=== PATIENT | female | born 1975 | race Caucasian/White ===

== ENCOUNTER 2017-05-28 14:26 | Inpatient (IN) | payer OTHER ==
[2017-05-28] MEDS ORDERED: SODIUM CHLORIDE 0.9% 1,000 ML IV STA ×2 (14:41→15:00)
--- NOTE | 2017-05-28 15:00 | ED ---
General Adult HPI - General Source: patient, RN notes reviewed Mode of arrival: ambulatory Limitations: no limitations <Virgen Evangelista - Last Filed: 05/28/17 16:17> <Naren Short - Last Filed: 05/28/17 16:26> - General Chief complaint: Recheck/Abnormal Lab/Rx Stated complaint: flu/dehydration Time Seen by Provider: 05/28/17 14:37 - History of Present Illness Initial comments: 41-year-old female presents to the emergency Department chief complaint of fever and dehydration. Patient has been sick for about 5 days now. She has had a fever and has been using Motrin Tylenol. Today they went to urgent care she states that today she started have some difficulty in urination but she's not been eating and drinking as much. She states that she is also started to develop some dizziness may now some low blood pressure. He states that she was then sent here. They were thinking she might have a bladder infection as well as influenza. They deny any nausea vomiting or diarrhea. She denies any specific pain. Denies any ear pain or throat pain. They were concerned due to the continued fever as well as the lower blood pressure and her dizziness so she thought that she should be seen. She states that laying flat she has no dizziness. She states that when she is up moving around as when the dizziness occurs. Patient denies any recent shortness of breath, chest pain, back pain, abdominal pain, nausea vomiting, numbness or tingling, dysuria or hematuria, constipation or diarrhea, headaches or visual changes, or any other current symptoms. (Virgen Evangelista) - Related Data Home Medications Medication Instructions Recorded Confirmed Acetaminophen Tab [Tylenol Tab] 1,000 mg PO Q6HR PRN 05/28/17 05/28/17 Ciprofloxacin HCl [Cipro] 500 mg PO Q12HR 05/28/17 05/28/17 Oseltamivir [Tamiflu] 75 mg PO Q12HR 05/28/17 05/28/17 Allergies Allergy/AdvReac Type Severity Reaction Status Date / Time No Known Allergies Allergy Verified 05/28/17 14:46 Review of Systems ROS Other: All systems not noted in ROS Statement are negative. <Virgen Evangelista - Last Filed: 05/28/17 16:17> ROS Other: All systems not noted in ROS Statement are negative. <Naren Short - Last Filed: 05/28/17 16:26> ROS Statement: Those systems with pertinent positive or pertinent negative responses have been documented in the HPI. Past Medical History Past Medical History: Hypertension Additional Past Medical History / Comment(s): kidney stones History of Any Multi-Drug Resistant Organisms: None Reported Past Surgical History: Section Past Psychological History: No Psychological Hx Reported Smoking Status: Never smoker Past Alcohol Use History: None Reported Past Drug Use History: None Reported <Virgen Evangelista - Last Filed: 05/28/17 16:17> General Exam Limitations: no limitations <Virgen Evangelista - Last Filed: 05/28/17 16:17> <Naren Short - Last Filed: 05/28/17 16:26> - General Exam Comments Initial Comments: General: The patient is awake and alert, in no distress, and does not appear acutely ill. Eye: Pupils are equal, round and reactive to light, extra-ocular movements are intact; there is normal conjunctiva bilaterally. No signs of icterus. Ears, nose, mouth and throat: There are moist mucous membranes. Neck: The neck is supple, there is no tenderness. Cardiovascular: There is a regular rate and rhythm. No murmur, rub or gallop is appreciated. Respiratory: Lungs are clear to auscultation, respirations are non-labored, breath sounds are equal. No wheezes, stridor, rales, or rhonchi. Gastrointestinal: Soft, non-distended, non-tender abdomen without masses or organomegaly noted. There is no rebound or guarding present. No CVA tenderness. Bowel sounds are unremarkable. Back: There is no tenderness to palpation in the midline. There is no obvious deformity. No rashes noted. Musculoskeletal: Normal ROM, no tenderness, There is no pedal edema. There is no calf tenderness or swelling. Sensation intact. Pulses equal bilaterally 2+. Neurological: CN II-XII intact, There are no obvious motor or sensory deficits. Coordination appears grossly intact. Speech is normal. Skin: Skin is warm and dry and no rashes or lesions are noted. Psychiatric: Cooperative, appropriate mood & affect, normal judgment. (Virgen Evangelista) Vital Signs 05/28/17 05/28/17 14:29 15:59 Temperature 99.0 F Pulse Rate 100 104 H Respiratory 20 16 Rate Blood Pressure 111/57 121/63 O2 Sat by Pulse 99 99 Oximetry EKG Findings - EKG Comments: EKG Findings:: Normal sinus rhythm, possible left atrial enlargement, incomplete right bundle branch block, ventricular rate 93,NE interval 142 <Virgen Evangelista - Last Filed: 05/28/17 16:17> Medical Decision Making - Lab Data Result diagrams: 05/28/17 14:52 05/28/17 14:52 - Radiology Data Radiology results: report reviewed, image reviewed <Virgen Evangelista - Last Filed: 05/28/17 16:17> - Lab Data Result diagrams: 05/28/17 14:52 05/28/17 14:52 <Naren Short - Last Filed: 05/28/17 16:26> - Medical Decision Making 41-year-old female presents with chief complaint of fever. At this time urinalysis is showing suspicion for UTI. Patient's laboratories show an elevated white blood cell count. Patient also was found to be anemic at 7.1. This time patient is having symptomatic anemia due to the lightheadedness at home. Stool occult is positive. Protonix has been ordered as well as Rocephin. We'll admit the patient for continued care. This is discussed with the patient and family are in agreement this plan all questions have been answered. Patient will be admitted at this time. (Virgen Evangelista) Patient reevaluated by myself, Dr. Short. Patient resting comfortably in bed. Patient updated on results and plan. Abdomen is soft and nontender. Patient denies any bloody stools. Patient states she may have had extremely rare black stools however none recently. Case was discussed in detail with Dr. wright, who will admit for Dr. Fleming. (Naren Short) - Lab Data Lab Results 05/28/17 05/28/17 05/28/17 Range/Units 14:52 14:52 14:52 WBC 13.6 H (3.8-10.6) k/uL RBC 3.86 (3.80-5.40) m/uL Hgb 7.1 L (11.4-16.0) gm/dL Hct 25.5 L (34.0-46.0) % MCV 66.2 L (80.0-100.0) fL MCH 18.5 L (25.0-35.0) pg MCHC 27.9 L (31.0-37.0) g/dL RDW 17.2 H (11.5-15.5) % Plt Count 358 (150-450) k/uL Neutrophils % 82 % Lymphocytes % 12 % Monocytes % 4 % Eosinophils % 0 % Basophils % 0 % Neutrophils # 11.1 H (1.3-7.7) k/uL Lymphocytes # 1.6 (1.0-4.8) k/uL Monocytes # 0.6 (0-1.0) k/uL Eosinophils # 0.0 (0-0.7) k/uL Basophils # 0.0 (0-0.2) k/uL Hypochromasia Marked Anisocytosis Slight Microcytosis Marked Sodium 132 L (137-145) mmol/L Potassium 2.8 L* (3.5-5.1) mmol/L Chloride 96 L (98-107) mmol/L Carbon Dioxide 22 (22-30) mmol/L Anion Gap 14 mmol/L BUN 16 (7-17) mg/dL Creatinine 1.10 H (0.52-1.04) mg/dL Est GFR (MDRD) Af Amer >60 (>60 ml/min/1.73 sqM) Est GFR (MDRD) Non-Af 55 (>60 ml/min/1.73 sqM) Glucose 174 H (74-99) mg/dL Plasma Lactic Acid Kev 1.6 (0.7-2.0) mmol/L Calcium 8.4 (8.4-10.2) mg/dL Total Bilirubin 0.4 (0.2-1.3) mg/dL AST 25 (14-36) U/L ALT 23 (9-52) U/L Alkaline Phosphatase 169 H (38-126) U/L Total Protein 6.8 (6.3-8.2) g/dL Albumin 3.4 L (3.5-5.0) g/dL Urine Color Urine Appearance (Clear) Urine pH (5.0-8.0) Ur Specific [place] (1.001-1.035) Urine Protein (Negative) Urine Glucose (UA) (Negative) Urine Ketones (Negative) Urine Blood (Negative) Urine Nitrite (Negative) Urine Bilirubin (Negative) Urine Urobilinogen (<2.0) mg/dL Ur Leukocyte Esterase (Negative) Urine RBC (0-5) /hpf Urine WBC (0-5) /hpf Ur Squamous Epith Cells (0-4) /hpf Urine Bacteria (None) /hpf Urine Mucus (None) /hpf Urine Yeast (Budding) (None) /hpf Stool Occult Blood (Negative) Influenza Type A RNA (Not Detectd) Influenza Type B (PCR) (Not Detectd) 05/28/17 05/28/17 05/28/17 Range/Units 14:52 15:50 15:57 WBC (3.8-10.6) k/uL RBC (3.80-5.40) m/uL Hgb (11.4-16.0) gm/dL Hct (34.0-46.0) % MCV (80.0-100.0) fL MCH (25.0-35.0) pg MCHC (31.0-37.0) g/dL RDW (11.5-15.5) % Plt Count (150-450) k/uL Neutrophils % % Lymphocytes % % Monocytes % % Eosinophils % % Basophils % % Neutrophils # (1.3-7.7) k/uL Lymphocytes # (1.0-4.8) k/uL Monocytes # (0-1.0) k/uL Eosinophils # (0-0.7) k/uL Basophils # (0-0.2) k/uL Hypochromasia Anisocytosis Microcytosis Sodium (137-145) mmol/L Potassium (3.5-5.1) mmol/L Chloride (98-107) mmol/L Carbon Dioxide (22-30) mmol/L Anion Gap mmol/L BUN (7-17) mg/dL Creatinine (0.52-1.04) mg/dL Est GFR (MDRD) Af Amer (>60 ml/min/1.73 sqM) Est GFR (MDRD) Non-Af (>60 ml/min/1.73 sqM) Glucose (74-99) mg/dL Plasma Lactic Acid Kev (0.7-2.0) mmol/L Calcium (8.4-10.2) mg/dL Total Bilirubin (0.2-1.3) mg/dL AST (14-36) U/L ALT (9-52) U/L Alkaline Phosphatase (38-126) U/L Total Protein (6.3-8.2) g/dL Albumin (3.5-5.0) g/dL Urine Color Yellow Urine Appearance Cloudy H (Clear) Urine pH 5.5 (5.0-8.0) Ur Specific [place] 1.005 (1.001-1.035) Urine Protein 1+ H (Negative) Urine Glucose (UA) Negative (Negative) Urine Ketones Negative (Negative) Urine Blood Moderate H (Negative) Urine Nitrite Negative (Negative) Urine Bilirubin Negative (Negative) Urine Urobilinogen <2.0 (<2.0) mg/dL Ur Leukocyte Esterase Small H (Negative) Urine RBC 34 H (0-5) /hpf Urine WBC 16 H (0-5) /hpf Ur Squamous Epith Cells 2 (0-4) /hpf Urine Bacteria Moderate H (None) /hpf Urine Mucus Rare H (None) /hpf Urine Yeast (Budding) Occasional H (None) /hpf Stool Occult Blood Positive H (Negative) Influenza Type A RNA Not Detected (Not Detectd) Influenza Type B (PCR) Not Detected (Not Detectd) Disposition Decision Date: 05/28/17 Decision Time: 16:18 <Virgen Evangelista - Last Filed: 05/28/17 16:17> <Naren Short - Last Filed: 05/28/17 16:26> Clinical Impression: UTI (urinary tract infection), Symptomatic anemia, GI bleed Disposition: ADMITTED IP TO THIS [facility] Condition: Stable Referrals: Elliot Fleming MD [Primary Care Provider] - 1-2 days Addendum entered and electronically signed by Virgen Evangelista PA-C 05/28/17 16:23: At this time the patient does meet for sepsis criteria.
[2017-05-28 15:09] LABS: Anisocytosis Slight; Basophils % (A) 0 %; Eosinophils % (A) 0 %; HCT 25.5 % (34.0-46.0); HGB 7.1 gm/dL (11.4-16.0); Hypochromasia Marked; Lymphocytes # (A) 1.6 k/uL (1.0-4.8); Lymphocytes % (A) 12 %; MCH 18.5 pg (25.0-35.0); MCHC 27.9 g/dL (31.0-37.0); MCV 66.2 fL (80.0-100.0); Mean Platelet Volume 7.1; Microcytosis Marked; Monocytes # (A) 0.6 k/uL (0-1.0); Monocytes % (A) 4 %; Neutrophils # (A) 11.1 k/uL (1.3-7.7); Neutrophils % (A) 82 %; Platelet Count 358 k/uL (150-450); RBC 3.86 m/uL (3.80-5.40); RDW 17.2 % (11.5-15.5); WBC 13.6 k/uL (3.8-10.6)
[2017-05-28 15:13] LABS: ALT 23 U/L (9-52); AST 25 U/L (14-36); Albumin 3.4 g/dL (3.5-5.0); Alkaline Phosphatase 169 U/L (38-126); Anion Gap 14 mmol/L; Blood Urea Nitrogen 16 mg/dL (7-17); Calcium 8.4 mg/dL (8.4-10.2); Carbon Dioxide 22 mmol/L (22-30); Chloride 96 mmol/L (98-107); Glucose 174 mg/dL (74-99); Sodium 132 mmol/L (137-145); Total Bilirubin 0.4 mg/dL (0.2-1.3); Total Protein 6.8 g/dL (6.3-8.2)
[2017-05-28 15:24] LABS: Potassium 2.8 mmol/L (3.5-5.1)
[2017-05-28] MEDS ORDERED: POTASSIUM CHLORIDE ER 20 MEQ TAB.ER PO STA (15:32)
--- NOTE | 2017-05-28 15:37 | XR ---
EXAMINATION TYPE: XR chest 2V DATE OF EXAM: 05/28/2017 COMPARISON: NONE HISTORY: Cough per order. Newly diagnosed flu with fever perforation. TECHNIQUE: Frontal and lateral views of the chest are obtained. FINDINGS: There is no focal air space opacity, pleural effusion, or pneumothorax seen. The cardiac silhouette size is within normal limits. The osseous structures are intact. IMPRESSION: No suspicious acute pulmonary process.
[2017-05-28 16:03] LABS: Appearance,Urine Cloudy (Clear); Bacteria,Urine Moderate /hpf; Bilirubin,Urine Negative (Negative); Blood,Urine Moderate (Negative); Budding Yeast,Urine Occasional /hpf; Color,Urine Yellow; Glucose,Urine (UA) Negative (Negative); Ketones,Urine Negative (Negative); Leukocyte Esterase,Urine Small (Negative); Mucus,Urine Rare /hpf; PH, Urine 5.5 (5.0-8.0); Protein,Urine 1+ (Negative); RBC,Urine 34 /hpf (0-5); Specific Gravity,Urine 1.005 (1.001-1.035); Squamous Epithelial Cell,Urine 2 /hpf (0-4); Urobilinogen,Urine <2.0 mg/dL (<2.0); WBC,Urine 16 /hpf (0-5)
[2017-05-28] MEDS ORDERED: PANTOPRAZOLE 40 MG/10 ML VIAL IVP STA (16:12)
[2017-05-28] MEDS ORDERED: cefTRIAXone IN SWFI 1,000 MG/10 ML SYRINGE IVP STA (16:13)
[2017-05-28] MEDS ORDERED: NALOXONE 0.4 MG/ML 1 ML VIAL IV PRN ×2 (16:18→18:31)
[2017-05-28] MEDS ORDERED: SODIUM CHLORIDE 0.9% 1,000 ML IV SCH (16:30)
[2017-05-28] MEDS: ACETAMINOPHEN TAB 325 MG TAB PO PRN ×2 (17:35→22:45)
[2017-05-28 18:11] VITALS: BMI 28.7
[2017-05-28] MEDS ORDERED: CALCIUM CARBONATE 500 MG CHEWABLE PO PRN (18:31)
[2017-05-28] MEDS ORDERED: Acetaminophen-Codeine 300-30mg TAB PO PRN (18:31)
[2017-05-28] MEDS ORDERED: LORazepam 0.5 MG TAB PO PRN (18:31)
[2017-05-28] MEDS ORDERED: LACTULOSE 20 GM/30 ML CUP PO PRN (18:31)
[2017-05-28] MEDS ORDERED: BISACODYL 10 MG SUPP RECTAL PRN (18:31)
[2017-05-28] MEDS ORDERED: cefTRIAXone 1,000 MG VIAL (IM USE) IM SCH (21:00)
[2017-05-28] MEDS ORDERED: cefTRIAXone IN SWFI 1,000 MG/10 ML SYRINGE IVP SCH (21:00)
[2017-05-28] MEDS ORDERED: MELATONIN 3 MG TABLET PO PRN (21:00)
[2017-05-28] MEDS: PANTOPRAZOLE 40 MG/10 ML VIAL IVP SCH (21:10)
[2017-05-28] MEDS: OSELTAMIVIR 75 MG CAP PO SCH (21:11)
[2017-05-28] MEDS: POTASSIUM CHLORIDE ER 20 MEQ TAB.ER PO SCH ×2 (21:12→23:45)
--- NOTE | 2017-05-28 21:45 | P.HPIM ---
History of Present Illness H&P Date: 05/28/17 Chief Complaint: fever History of present complaint: This is a very pleasant 41-year-old patient of Dr. Fleming. Chronic stable medical conditions include hypertension, kidney stones, heavy menstrual period. Patient does get kidney stone pain off and on, and sometimes get cloudy urine that clears up up on its own. For about 5 days patient been having fever chills. Increased urinary frequency. Increasing low back pain, and in the kidney area. Decreased appetite. Some nausea. No vomiting. Tired rundown. Finally decided to come in. Patient's hemoglobin was found to be down in the ER. Patient does occasionally notice dark stool. There is no weight loss. Patient does complain of heavy menstrual period for quite some time. Did not seek medical attention for the same though she did mention this to her family doctor's mid- level provider GEN.: Fever chills decreased appetite EYES: None HEENT: None NECK: None RESPIRATORY: None CARDIOVASCULAR: None GASTROINTESTINAL: As above GENITOURINARY: Heavy menstrual.] MUSCULOSKELETAL: None LYMPHATICS: None HEMATOLOGICAL: None PSYCHIATRY: None NEUROLOGICAL: None Past medical history: Hypertension, kidney stones, gestational diabetes Past surgical history: None Social history: Patient does not smoke or drink alcohol. Lives with her . 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. Family history: Diabetes mellitus VITAL SIGNS: 101.6, 117, 18, 139/71, 100% room air GENERAL: Average built, laying in bed, tired appearing. EYES: Pupils equal. Conjunctiva palel. HEENT: External appearance of nose and ears normal, oral cavity grossly normal. NECK: JVD not raised; masses not palpable. HEART: First and second heart sounds are normal; no edema. LUNGS: Respiratory rate normal; clear to auscultation. ABDOMEN: Soft, mild tenderness in the right renal angle, liver spleen not palpable, no masses palpable. LYMPHATICS: No lymph nodes palpable in the axilla and neck. PSYCH: Alert and oriented x3; mood and affect normal. NEUROLOGICAL: Cranial nerves grossly intact; no facial asymmetry, power and sensation grossly intact. Investigations: White count 13.6, hemoglobin 7.1, MCV low, platelets 358, potassium 2.8, sodium 132, creatinine 1.10 UA positive for blood leukoesterase WBC Stool occult blood positive Assessment: -Possible right pyelonephritis in a patient with known kidney stones, now presenting with sepsis, POA -Significant microcytic anemia, and the patient is got chronic menorrhagia, that could explain the same but at the same time, patient does report of dark stools and patient got fecal, blood positive. -Possible chronic GI bleed, needs to be further worked up -Essential hypertension -Chronic menorrhagia -Chronic nephrolithiasis Plan: Patient be given IV fluids, IV ceftriaxone. Consultation to GI is being done with a view to possible endoscopy. Electrolytes labs will be followed closely. Care was discussed in detail with the patient. Patient will need to see CLAIM PROCESSOR as an outpatient. This was discussed with the patient. Questions were answered Past Medical History Past Medical History: Hypertension Additional Past Medical History / Comment(s): kidney stones, Gestational diabetes. History of Any Multi-Drug Resistant Organisms: None Reported Past Surgical History: Section Past Psychological History: No Psychological Hx Reported Smoking Status: Never smoker Past Alcohol Use History: None Reported Past Drug Use History: None Reported - Past Family History Mother Family Medical History: Diabetes Mellitus Medications and Allergies Home Medications Medication Instructions Recorded Confirmed Type Acetaminophen Tab [Tylenol Tab] 1,000 mg PO Q6HR PRN 05/28/17 05/28/17 History Ciprofloxacin HCl [Cipro] 500 mg PO Q12HR 05/28/17 05/28/17 History Oseltamivir [Tamiflu] 75 mg PO Q12HR 05/28/17 05/28/17 History Allergies Allergy/AdvReac Type Severity Reaction Status Date / Time No Known Allergies Allergy Verified 05/28/17 14:46 Results CBC & Chem 7: 05/28/17 14:52 05/28/17 19:23 Labs: Abnormal Lab Results - Last 24 Hours (Table)
[2017-05-28] MEDS: IBUPROFEN 400 MG TAB PO PRN (21:50)
[2017-05-28] MEDS: LACTATED RINGERS 1,000 ML IV SCH (21:50)
[2017-05-29] MEDS: LACTATED RINGERS 1,000 ML IV SCH ×3 (05:08→21:19)
[2017-05-29 07:32] LABS: Anisocytosis Slight; Basophils % (A) 0 %; Eosinophils % (A) 0 %; HCT 24.8 % (34.0-46.0); Hypochromasia Marked; Lymphocytes # (A) 1.3 k/uL (1.0-4.8); Lymphocytes % (A) 11 %; MCH 18.8 pg (25.0-35.0); MCHC 27.1 g/dL (31.0-37.0); MCV 69.4 fL (80.0-100.0); Mean Platelet Volume 7.3; Microcytosis Marked; Monocytes # (A) 0.5 k/uL (0-1.0); Monocytes % (A) 4 %; Neutrophils # (A) 9.3 k/uL (1.3-7.7); Neutrophils % (A) 82 %; Platelet Count 325 k/uL (150-450); RBC 3.57 m/uL (3.80-5.40); RDW 17.6 % (11.5-15.5); WBC 11.4 k/uL (3.8-10.6)
[2017-05-29 07:43] LABS: ALT 29 U/L (9-52); AST 20 U/L (14-36); Albumin 2.8 g/dL (3.5-5.0); Alkaline Phosphatase 155 U/L (38-126); Anion Gap 10 mmol/L; Blood Urea Nitrogen 10 mg/dL (7-17); Calcium 8.3 mg/dL (8.4-10.2); Carbon Dioxide 21 mmol/L (22-30); Chloride 110 mmol/L (98-107); Glucose 97 mg/dL (74-99); Potassium 4.1 mmol/L (3.5-5.1); Sodium 141 mmol/L (137-145); Total Bilirubin 0.2 mg/dL (0.2-1.3); Total Protein 5.8 g/dL (6.3-8.2)
[2017-05-29] MEDS: ACETAMINOPHEN TAB 325 MG TAB PO PRN ×3 (07:50→21:19)
[2017-05-29] MEDS: PANTOPRAZOLE 40 MG/10 ML VIAL IVP SCH ×2 (07:51→21:19)
[2017-05-29] MEDS: OSELTAMIVIR 75 MG CAP PO SCH (07:51)
[2017-05-29 08:10] LABS: HGB 6.7 gm/dL (11.4-16.0)
[2017-05-29] MEDS: IBUPROFEN 400 MG TAB PO PRN (10:31)
--- NOTE | 2017-05-29 19:19 | P.PN ---
Progress Note - Text Progress Note Date: 05/29/17 Presenting complaint fever Interval history: This is a very pleasant 41-year-old patient of Dr. Fleming. Chronic stable medical conditions include hypertension, kidney stones, heavy menstrual period. Patient does get kidney stone pain off and on, and sometimes get cloudy urine that clears up up on its own. For about 5 days patient been having fever chills. Increased urinary frequency. Increasing low back pain, and in the kidney area. Decreased appetite. Some nausea. No vomiting. Tired rundown. Finally decided to come in. Patient's hemoglobin was found to be down in the ER. Patient does occasionally notice dark stool. There is no weight loss. Patient does complain of heavy menstrual period for quite some time. Did not seek medical attention for the same though she did mention this to her family doctor's mid- level provider Today-patient was ordered unit of blood by me earlier today. Hemoglobin dropped to below 7. Patient's patient also on her menstruation. Awaiting input from GI. Overall feeling better. Abdominal pain is greatly improved. Review of systems: Was done for constitutional, cardiovascular, GI, pulmonary. relevant finding as above Current medications are reviewed and include: IV ceftriaxone IV lactated Ringer's VITAL SIGNS: 100.6, 108, 14, 135-84, 93% GENERAL: , laying in bed, tired appearing. EYES: Pupils equal. Conjunctiva palel. HEENT: External appearance of nose and ears normal, oral cavity grossly normal. NECK: JVD not raised; masses not palpable. HEART: First and second heart sounds are normal; no edema. LUNGS: Respiratory rate normal; clear to auscultation. ABDOMEN: Soft, mild tenderness in the right renal angle, liver spleen not palpable, no masses palpable. PSYCH: Alert and oriented x3; mood and affect normal. Investigations: White count 11.4, hemoglobin 6.7, potassium 4.1, creatinine 0.67 UA positive for blood leukoesterase WBC Stool occult blood positive Assessment: -Possible right pyelonephritis in a patient with known kidney stones, now presenting with sepsis, POA -Significant microcytic anemia, and the patient is got acute on chronic menorrhagia, that could explain the same but at the same time, patient does report of dark stools and patient got fecal, blood positive. -Possible chronic GI bleed, needs to be further worked up -Essential hypertension -Chronic menorrhagia -Chronic nephrolithiasis Plan: Patient been ordered unit of blood. Continue with IV antibiotics. Await cultures. Care was discussed with the patient.
[2017-05-29] MEDS: cefTRIAXone IN SWFI 1,000 MG/10 ML SYRINGE IVP SCH (21:19)
[2017-05-30] MEDS: IBUPROFEN 400 MG TAB PO PRN ×2 (00:01→13:12)
[2017-05-30 07:57] LABS: Anisocytosis Slight; Basophils % (A) 0 %; Eosinophils % (A) 0 %; HCT 26.9 % (34.0-46.0); HGB 7.6 gm/dL (11.4-16.0); Hypochromasia Marked; Lymphocytes # (A) 1.3 k/uL (1.0-4.8); Lymphocytes % (A) 11 %; MCH 20.1 pg (25.0-35.0); MCHC 28.1 g/dL (31.0-37.0); MCV 71.7 fL (80.0-100.0); Mean Platelet Volume 7.2; Microcytosis Marked; Monocytes # (A) 0.5 k/uL (0-1.0); Monocytes % (A) 4 %; Neutrophils # (A) 10.3 k/uL (1.3-7.7); Neutrophils % (A) 83 %; Platelet Count 305 k/uL (150-450); Poikilocytosis Slight; RBC 3.75 m/uL (3.80-5.40); RDW 18.5 % (11.5-15.5); WBC 12.4 k/uL (3.8-10.6)
[2017-05-30 08:12] LABS: Anion Gap 11 mmol/L; Blood Urea Nitrogen 7 mg/dL (7-17); Calcium 8.3 mg/dL (8.4-10.2); Carbon Dioxide 23 mmol/L (22-30); Chloride 106 mmol/L (98-107); Glucose 84 mg/dL (74-99); Potassium 3.6 mmol/L (3.5-5.1); Sodium 140 mmol/L (137-145)
[2017-05-30] MEDS: ACETAMINOPHEN TAB 325 MG TAB PO PRN ×3 (08:28→21:23)
[2017-05-30] MEDS: PANTOPRAZOLE 40 MG/10 ML VIAL IVP SCH ×2 (09:02→20:37)
--- NOTE | 2017-05-30 15:05 | P.CONS ---
History of Present Illness - Reason for Consult Consult date: 05/29/17 Anemia - History of Present Illness This is a very pleasant 41-year-old patient of Dr. Fleming. Chronic stable medical conditions include hypertension, kidney stones, heavy menstrual period. Patient does get kidney stone pain off and on, and sometimes get cloudy urine that clears up up on its own. For about 5 days patient been having fever chills. Increased urinary frequency. Increasing low back pain, and in the kidney area. Decreased appetite. Some nausea. No vomiting. Tired rundown. Finally decided to come in. Patient's hemoglobin was found to be down in the ER. Patient does occasionally notice dark stool. There is no weight loss. Patient does complain of heavy menstrual period for quite some time. Apparently she had a colonoscopy within the last 3-5 years that was normal. She has no overt bleeding or any upper GI complaints. Review of Systems Constitutional: Denies fever, chills, sweats, weight gain, or loss. HEENT: Negative for migraines, blurred vision or loss, earaches, drainage, tinnitus, oral mucosal lesions, dysphagia, or odynophagia. CARDIAC: Negative for chest pain, arrhythmias, or palpitation. RESPIRATORY: Negative for cough, SOB or wheezing. GI: See HPI for pertinent findings. : Negative for hematuria, urgency, frequency, polyuria, or dysuria. MUSCULOSKELETAL: Negative for muscle aches, swelling, arthritis, and arthralgias. NEUROLOGIC: Negative for stroke or TIA. ENDOCRINE: Negative for thyroid problems or diabetes. SKIN: Negative for rash or itching. PSYCHIATRIC: Negative history for depression and anxiety. Past Medical History Past Medical History: Hypertension Additional Past Medical History / Comment(s): kidney stones, Gestational diabetes. History of Any Multi-Drug Resistant Organisms: None Reported Past Surgical History: Section Past Psychological History: No Psychological Hx Reported Smoking Status: Never smoker Past Alcohol Use History: None Reported Past Drug Use History: None Reported - Past Family History Mother Family Medical History: Diabetes Mellitus Medications and Allergies Home Medications Medication Instructions Recorded Confirmed Type Acetaminophen Tab [Tylenol Tab] 1,000 mg PO Q6HR PRN 05/28/17 05/28/17 History Ciprofloxacin HCl [Cipro] 500 mg PO Q12HR 05/28/17 05/28/17 History Oseltamivir [Tamiflu] 75 mg PO Q12HR 05/28/17 05/28/17 History Allergies Allergy/AdvReac Type Severity Reaction Status Date / Time No Known Allergies Allergy Verified 05/28/17 14:46 Physical Exam Vitals: Vital Signs Temp Pulse Pulse Resp BP BP Pulse Ox 05/29/17 17:42 100.6 F H 108 H 14 135/84 93 L 05/29/17 14:06 99.2 F 98 12 109/69 98 05/29/17 14:03 99.2 F 104 H 14 109/69 98 05/29/17 13:36 99 F 98 14 117/69 98 05/29/17 13:26 98.5 F 112 H 16 114/75 98 05/29/17 10:29 100.4 F H 05/29/17 07:00 100.1 F H 118 H 20 128/75 100 05/29/17 04:59 97.9 F 91 16 112/69 99 05/28/17 23:45 99.6 F 111 H 16 94/51 96 Intake and Output 05/29/17 05/29/17 05/30/17 14:59 22:59 06:59 Intake Total 1000 310 Balance 1000 310 Intake: Intake, IV Titration 1000 Amount Lactated Ringers 1,000 ml 1000 @ 125 mls/hr IV .Q8H [facility] Rx#:[id number] Blood Product 0 310 Rc As-1 Unit 0 310 [id number] Other: Voiding Method Toilet General appearance: The patient is alert, oriented, with no acute distress. HET: Head is normocephalic and atraumatic. Pupils are equal and reactive. Oropharynx is clear without lesions. Neck: Supple without lymphadenopathy. Trachea midline. Heart: S1 S2. Regular rate and rhythm. Lungs: Clear to auscultation, with no dullness to percussion. Abdomen: Soft, nontender, nondistended with bowel sounds. No peritoneal signs. No palpable organomegaly or masses. Extremities: Normal skin color and turgor. No cyanosis, rash, ulceration, clubbing, or edema. Radial and pedal pulses are 2/4 bilaterally. Neurological: No focal deficits. Strength and sensation are grossly intact. Results CBC & Chem 7: 05/30/17 07:36 05/30/17 07:36 Labs: Abnormal Lab Results - Last 24 Hours (Table) 05/29/17 05/29/17 05/29/17 Range/Units 07:05 07:05 08:41 WBC 11.4 H (3.8-10.6) k/uL RBC 3.57 L (3.80-5.40) m/uL Hgb 6.7 L* (11.4-16.0) gm/dL Hct 24.8 L (34.0-46.0) % MCV 69.4 L (80.0-100.0) fL MCH 18.8 L (25.0-35.0) pg MCHC 27.1 L (31.0-37.0) g/dL RDW 17.6 H (11.5-15.5) % Neutrophils # 9.3 H (1.3-7.7) k/uL Chloride 110 H (98-107) mmol/L Carbon Dioxide 21 L (22-30) mmol/L Calcium 8.3 L (8.4-10.2) mg/dL Alkaline Phosphatase 155 H (38-126) U/L Total Protein 5.8 L (6.3-8.2) g/dL Albumin 2.8 L (3.5-5.0) g/dL Crossmatch See Detail Microbiology - Last 24 Hours (Table) 05/28/17 15:50 Urine Culture - Final Urine,Voided 05/28/17 14:52 Blood Culture - Preliminary Blood No Growth after 24 hours Assessment and Plan Assessment: Iron deficiency anemia likely secondary to ongoing menstrual bleeding. Plan: Procedure: Management. Consideration can be given for repeat colonoscopy and an upper endoscopy as outpatient especially if she has positive stools occult blood in her stools. This can be arranged as outpatient depending on her overall course.
[2017-05-30] MEDS ORDERED: RX INFO: IV CONTRAST WAS GIVEN 1 EACH MISC MISCELLANE PRN (17:29)
[2017-05-30] MEDS: IOHEXOL 350 MG/ML 25 ML BOTTLE (ORAL USE) PO PRN ×2 (18:24→19:24)
--- NOTE | 2017-05-30 19:00 | P.PN ---
Progress Note - Text Progress Note Date: 05/30/17 Presenting complaint fever Interval history: This is a very pleasant 41-year-old patient of Dr. Fleming. Chronic stable medical conditions include hypertension, kidney stones, heavy menstrual period. Patient does get kidney stone pain off and on, and sometimes get cloudy urine that clears up up on its own. For about 5 days patient been having fever chills. Increased urinary frequency. Increasing low back pain, and in the kidney area. Decreased appetite. Some nausea. No vomiting. Tired rundown. Finally decided to come in. Patient's hemoglobin was found to be down in the ER. Patient does occasionally notice dark stool. There is no weight loss. Patient does complain of heavy menstrual period for quite some time. Did not seek medical attention for the same though she did mention this to her family doctor's mid- level provider Today-patient still having some fever this morning. Abdominal pain is better. Menstruation is stopped. Seen by GI who will do an endoscopy as an outpatient. Patient been out of bed. Did tolerate a diet. Did have some loose stools. Review of systems: Was done for constitutional, cardiovascular, GI, pulmonary. relevant finding as above Current medications are reviewed and include: IV ceftriaxone IV lactated Ringer's VITAL SIGNS: 101.5, 78, 16, 131/88, 95% room air GENERAL: , laying in bed, comfortable. EYES: Pupils equal. Conjunctiva palel. HEENT: External appearance of nose and ears normal, oral cavity grossly normal. NECK: JVD not raised; masses not palpable. HEART: First and second heart sounds are normal; no edema. LUNGS: Respiratory rate normal; clear to auscultation. ABDOMEN: Soft, mild tenderness in the right renal angle, liver spleen not palpable, no masses palpable. PSYCH: Alert and oriented x3; mood and affect normal. Investigations: White count 12.4, hemoglobin 7.6, potassium 3.6 creatinine 0.57 UA positive for blood leukoesterase WBC Stool occult blood positive Assessment: -Possible right pyelonephritis in a patient with known kidney stones, now presenting with sepsis, POA, slow to respond with fever spikes -Significant microcytic anemia, and the patient is got acute on chronic menorrhagia, that could explain the same but at the same time, patient does report of dark stools and patient got fecal, blood positive. -Possible chronic GI bleed, needs to be further worked up -Essential hypertension -Chronic menorrhagia -Chronic nephrolithiasis -Acute renal failure, present on admission, prerenal with creatinine coming down from 1.1 down to 0.57 -Hypoalbuminemia, from an acute phase reactant Plan: Continue patient on IV antibiotics. Patient is clinically looking better. But we'll going to do a computed tomography scan of the abdomen with contrast and pelvis. GI will do an outpatient endoscopy. Care was discussed with the patient. Encouraged the patient to be out of bed. We'll send the stool off for C. diff not highly doubt it to be the same.
--- NOTE | 2017-05-30 20:34 | CT ---
EXAMINATION TYPE: CT abdomen pelvis w con DATE OF EXAM: 05/30/2017 COMPARISON: NONE HISTORY: Abdominal pain CT DLP: mGycm Automated exposure control for dose reduction was used. TECHNIQUE: Helical acquisition of images was performed from the lung bases through the pelvis. The IV contrast was Omnipaque 100 mL. FINDINGS: There is mild right pleural effusion. There is mild linear reticular density at the lung bases consis tent with subsegmental atelectasis. There is no pericardial effusion. Liver spleen pancreas appear normal. There is a large 3 cm calcified gallstone. There is no adrenal mass. There is abnormal decreased cortical enhancement in the upper and lower kyle e of the left kidney. Left kidney is slightly larger than the right. This is consistent with edema. There is no adrenal mass. I see no hydronephrosis. Left ureter is slightly dilated. There is no retro peritoneal adenopathy. There is no ascites. There is a 1 cm cortical cyst on the lateral right kidney. There are small calci fications in both kidneys that measure up to 3 mm. There are phleboliths in the pelvis. There is a po ssible small calculus in the distal left ureter. I see no intestinal wall thickening. There is a small amount of free fluid in the pelvis on the right side. Bladder distends smoothly. There is a 1 cm cervical cyst. Uterus is retroverted. I see no bony destructive process. There is no intestinal wall thickening. There are no dilated loops. Appendix is not definitely seen. There is no sign of appendicitis. CONCLUSION: Right pleural effusion. Large calcified gallstone. Decreased cortical enhancement in the left kidney probably due to obstruction. Pyelonephritis cannot be entirely excluded. Mild left-sided hydronephrosis. Possible stone in the distal left ureter. Small right renal cortical cyst. Mild free fluid in the cul-de-sac. Small umbilical hernia contains fat.
[2017-05-30] MEDS: LACTATED RINGERS 1,000 ML IV SCH (20:36)
[2017-05-30] MEDS: cefTRIAXone IN SWFI 1,000 MG/10 ML SYRINGE IVP SCH (20:36)
[2017-05-31] MEDS: LACTATED RINGERS 1,000 ML IV SCH ×2 (01:00→04:36)
[2017-05-31] MEDS: PANTOPRAZOLE 40 MG/10 ML VIAL IVP SCH ×2 (07:22→20:45)
[2017-05-31] MEDS: ACETAMINOPHEN TAB 325 MG TAB PO PRN ×2 (08:02→22:37)
[2017-05-31 08:24] LABS: ALT 37 U/L (9-52); AST 34 U/L (14-36); Alkaline Phosphatase 184 U/L (38-126); Anion Gap 12 mmol/L; Blood Urea Nitrogen 5 mg/dL (7-17); Calcium 8.5 mg/dL (8.4-10.2); Carbon Dioxide 26 mmol/L (22-30); Chloride 105 mmol/L (98-107); Glucose 89 mg/dL (74-99); Potassium 3.2 mmol/L (3.5-5.1); Sodium 143 mmol/L (137-145); Total Bilirubin 0.4 mg/dL (0.2-1.3); Total Protein 6.1 g/dL (6.3-8.2)
[2017-05-31 08:25] LABS: Anisocytosis Slight; Basophils % (A) 0 %; Eosinophils % (A) 0 %; HGB 7.5 gm/dL (11.4-16.0); Hypochromasia Marked; Lymphocytes # (A) 1.4 k/uL (1.0-4.8); Lymphocytes % (A) 14 %; MCH 20.2 pg (25.0-35.0); MCHC 28.8 g/dL (31.0-37.0); MCV 70.1 fL (80.0-100.0); Mean Platelet Volume 7.2; Microcytosis Marked; Monocytes # (A) 0.4 k/uL (0-1.0); Monocytes % (A) 4 %; Neutrophils # (A) 7.7 k/uL (1.3-7.7); Neutrophils % (A) 78 %; Platelet Count 379 k/uL (150-450); Poikilocytosis Slight; RBC 3.71 m/uL (3.80-5.40); RDW 18.7 % (11.5-15.5); WBC 9.9 k/uL (3.8-10.6)
--- NOTE | 2017-05-31 17:11 | P.GSCN ---
History of Present Illness Consult date: 05/31/17 History of present illness: The patient is a 41-year-old female who is in the hospital abdominal pain possible pyelonephritis anemia due to dysfunctional uterine bleeding. Patient has a history of stones. She question whether she had a stone recently. She started having fevers as high as 104 several days ago. They persisted for several days. She thought she had the flu but when her symptoms persisted and she became lethargic she came to the hospital. She is evaluated in the emergency room and treated as a possible pyelonephritis. She ended up having GI medicine see her they were not convinced there is a GI issue. She ended up with a CAT scan that suggested some mild left-sided hydronephrosis and a possible stone near the left ureterovesical junction. Because of this we are asked see the patient. The patient does have a history of stones. She never has seen a urologist. The stones of always been very tiny. The CAT scan does show a stone in the left mid pole of the kidney. There is a possible stone near the ureterovesical junction. Her fevers have been dissipating. A urine culture is negative. She is on antibiotics. She has had diarrhea. She has not had any significant flank pain. Review of Systems - Constitutional Reports anorexia, Reports chills, Denies fever, Denies weight loss - Gastrointestinal Reports as per HPI - Genitourinary Genitourinary: Reports as per HPI Past Medical History Past Medical History: Hypertension Additional Past Medical History / Comment(s): kidney stones, Gestational diabetes. History of Any Multi-Drug Resistant Organisms: None Reported Past Surgical History: Section Past Psychological History: No Psychological Hx Reported Smoking Status: Never smoker Past Alcohol Use History: None Reported Past Drug Use History: None Reported - Past Family History Mother Family Medical History: Diabetes Mellitus Medications and Allergies Home Medications Medication Instructions Recorded Confirmed Type Acetaminophen Tab [Tylenol Tab] 1,000 mg PO Q6HR PRN 05/28/17 05/28/17 History Ciprofloxacin HCl [Cipro] 500 mg PO Q12HR 05/28/17 05/28/17 History Oseltamivir [Tamiflu] 75 mg PO Q12HR 05/28/17 05/28/17 History Allergies Allergy/AdvReac Type Severity Reaction Status Date / Time No Known Allergies Allergy Verified 05/28/17 14:46 Surgical - Exam Vital Signs Temp Pulse Resp BP Pulse Ox 99.0 F 100 20 111/57 99 05/28/17 14:29 05/28/17 14:29 05/28/17 14:29 05/28/17 14:29 05/28/17 14:29 - General well developed, well nourished, no distress - Eyes PERRL - ENT no hearing loss - Neck trachea midline - Respiratory normal expansion, normal respiratory effort - Cardiovascular Rhythm: regular - Abdomen Abdomen: soft, non tender - Integumentary no rash, no growths - Neurologic normal coordination, normal sensation - Musculoskeletal normal gait - Psychiatric oriented to time, oriented to person, oriented to place, speech is normal, memory intact Results - Labs 05/31/17 07:35 05/31/17 07:35 Abnormal Lab Results - Last 24 Hours (Table) 05/31/17 05/31/17 Range/Units 07:35 07:35 RBC 3.71 L (3.80-5.40) m/uL Hgb 7.5 L (11.4-16.0) gm/dL Hct 26.0 L (34.0-46.0) % MCV 70.1 L (80.0-100.0) fL MCH 20.2 L (25.0-35.0) pg MCHC 28.8 L (31.0-37.0) g/dL RDW 18.7 H (11.5-15.5) % Potassium 3.2 L (3.5-5.1) mmol/L BUN 5 L (7-17) mg/dL Alkaline Phosphatase 184 H (38-126) U/L Total Protein 6.1 L (6.3-8.2) g/dL Albumin 3.0 L (3.5-5.0) g/dL Microbiology - Last 24 Hours (Table) 05/28/17 14:52 Blood Culture - Preliminary Blood No Growth after 72 hours Diabetes panel 05/31/17 Range/Units 07:35 Sodium 143 (137-145) mmol/L Potassium 3.2 L (3.5-5.1) mmol/L Chloride 105 (98-107) mmol/L Carbon Dioxide 26 (22-30) mmol/L BUN 5 L (7-17) mg/dL Creatinine 0.60 (0.52-1.04) mg/dL Glucose 89 (74-99) mg/dL Calcium 8.5 (8.4-10.2) mg/dL AST 34 (14-36) U/L ALT 37 (9-52) U/L Alkaline Phosphatase 184 H (38-126) U/L Total Protein 6.1 L (6.3-8.2) g/dL Albumin 3.0 L (3.5-5.0) g/dL Calcium panel 05/31/17 Range/Units 07:35 Calcium 8.5 (8.4-10.2) mg/dL Albumin 3.0 L (3.5-5.0) g/dL Pituitary panel 05/31/17 Range/Units 07:35 Sodium 143 (137-145) mmol/L Potassium 3.2 L (3.5-5.1) mmol/L Chloride 105 (98-107) mmol/L Carbon Dioxide 26 (22-30) mmol/L BUN 5 L (7-17) mg/dL Creatinine 0.60 (0.52-1.04) mg/dL Glucose 89 (74-99) mg/dL Calcium 8.5 (8.4-10.2) mg/dL Adrenal panel 05/31/17 Range/Units 07:35 Sodium 143 (137-145) mmol/L Potassium 3.2 L (3.5-5.1) mmol/L Chloride 105 (98-107) mmol/L Carbon Dioxide 26 (22-30) mmol/L BUN 5 L (7-17) mg/dL Creatinine 0.60 (0.52-1.04) mg/dL Glucose 89 (74-99) mg/dL Calcium 8.5 (8.4-10.2) mg/dL Total Bilirubin 0.4 (0.2-1.3) mg/dL AST 34 (14-36) U/L ALT 37 (9-52) U/L Alkaline Phosphatase 184 H (38-126) U/L Total Protein 6.1 L (6.3-8.2) g/dL Albumin 3.0 L (3.5-5.0) g/dL - Imaging CT scan - abdomen: report reviewed, image reviewed CT scan - pelvis: report reviewed, image reviewed US - abdomen: image reviewed Assessment and Plan Assessment: Impression: Fever of unknown origin possible ureteral calculus with obstruction and secondary pyelonephrosis left. History of kidney stones. Anemia probably secondary to dysfunctional uterine bleeding. Recommendations: Patient's options are spontaneous passage, IVP to assess whether the calcification is indeed a stone in the left ureter versus cystoscopy retrograde pyelogram. She would like to proceed with an IVP.
--- NOTE | 2017-05-31 18:40 | P.PN ---
Progress Note - Text Progress Note Date: 05/31/17 Presenting complaint fever Interval history: This is a very pleasant 41-year-old patient of Dr. Fleming. Chronic stable medical conditions include hypertension, kidney stones, heavy menstrual period. Patient does get kidney stone pain off and on, and sometimes get cloudy urine that clears up up on its own. For about 5 days patient been having fever chills. Increased urinary frequency. Increasing low back pain, and in the kidney area. Decreased appetite. Some nausea. No vomiting. Tired rundown. Finally decided to come in. Patient's hemoglobin was found to be down in the ER. Patient does occasionally notice dark stool. There is no weight loss. Patient does complain of heavy menstrual period for quite some time. Did not seek medical attention for the same though she did mention this to her family doctor's mid- level provider Today-patient spiked a fever again this morning. Abdominal pain is much better. That improved. Tolerating a light diet. No new urine symptoms. Minimal abdominal pain on the left side Review of systems: Was done for constitutional, cardiovascular, GI, pulmonary. relevant finding as above Current medications are reviewed and include: IV ceftriaxone IV lactated Ringer's VITAL SIGNS: 101.6-this morning, 105, 18, 150/81, 97% room air GENERAL: , laying in bed, comfortable. EYES: Pupils equal. Conjunctiva palel. HEENT: External appearance of nose and ears normal, oral cavity grossly normal. NECK: JVD not raised; masses not palpable. HEART: First and second heart sounds are normal; no edema. LUNGS: Respiratory rate normal; clear to auscultation. ABDOMEN: Soft, mild tenderness in the left lower quadrant, liver spleen not palpable, no masses palpable. PSYCH: Alert and oriented x3; mood and affect normal. Investigations: White count 9.9, hemoglobin 7.5, potassium 3.2 Computed tomography scan of the abdomen and pelvis-possible left ureter stones Assessment: -Possible right pyelonephritis in a patient with known kidney stones, now presenting with sepsis, POA, slow to respond with fever spikes that are continued, now computed tomography scan showing a possible left ureter stone. If patient continues with fevers in that case a double-J stent may have be placed. Though clinically, there is some mild improvement with some white count coming down -Significant microcytic anemia, and the patient is got acute on chronic menorrhagia, that could explain the same but at the same time, patient does report of dark stools and patient got fecal, blood positive. -Possible chronic GI bleed, needs to be further worked up -Essential hypertension -Chronic menorrhagia -Chronic nephrolithiasis -Acute renal failure, present on admission, prerenal with creatinine coming down from 1.1 down to 0.57 -Hypoalbuminemia, from an acute phase reactant Plan: Continue with aggressive IV hydration, IV ceftriaxone. Care was discussed with the patient. Urology consultation is being done.
[2017-05-31] MEDS: cefTRIAXone IN SWFI 1,000 MG/10 ML SYRINGE IVP SCH (20:45)
[2017-06-01] MEDS: LACTATED RINGERS 1,000 ML IV SCH ×6 (01:04→20:33)
[2017-06-01 07:32] LABS: Anisocytosis Slight; Basophils % (A) 0 %; Eosinophils # (A) 0.1 k/uL (0-0.7); Eosinophils % (A) 1 %; HCT 27.4 % (34.0-46.0); HGB 7.8 gm/dL (11.4-16.0); Hypochromasia Marked; Lymphocytes # (A) 2.2 k/uL (1.0-4.8); Lymphocytes % (A) 25 %; MCH 19.9 pg (25.0-35.0); MCHC 28.3 g/dL (31.0-37.0); MCV 70.5 fL (80.0-100.0); Microcytosis Marked; Monocytes # (A) 0.4 k/uL (0-1.0); Monocytes % (A) 4 %; Neutrophils # (A) 5.9 k/uL (1.3-7.7); Neutrophils % (A) 66 %; Platelet Count 478 k/uL (150-450); Poikilocytosis Slight; RBC 3.89 m/uL (3.80-5.40); RDW 18.6 % (11.5-15.5)
[2017-06-01 08:09] LABS: Anion Gap 12 mmol/L; Blood Urea Nitrogen 5 mg/dL (7-17); Calcium 8.6 mg/dL (8.4-10.2); Carbon Dioxide 27 mmol/L (22-30); Chloride 103 mmol/L (98-107); Glucose 97 mg/dL (74-99); Potassium 3.1 mmol/L (3.5-5.1); Sodium 142 mmol/L (137-145)
--- NOTE | 2017-06-01 09:07 | XR ---
EXAMINATION TYPE: XR abdomen 1V DATE OF EXAM: 06/01/2017 8:43 AM CLINICAL HISTORY: Left-sided hydronephrosis and obstructive uropathy. TECHNIQUE: Single supine KUB image of the abdomen is obtained. COMPARISON: 05/30/2017. FINDINGS: Contrast is seen within the rectum and throughout the ascending and transverse colon from r ecent CT. Scattered gas is seen in non-distended small bowel loops. Gas and fecal material is seen in non-distended colon. Calcifications within the pelvis appear to represent phleboliths and are centra lly lucent. The known obstructing left ureterovesicular calculus is not clearly identified radiograph ically and could have passed in the interim. The lung bases are clear and the osseous structures are intact. IMPRESSION: 1. Nonobstructive bowel gas pattern with residual contrast in the rectum and throughout the nondilate d colon from the recent CT. 2. Nonvisualization of the nonobstructing left distal ureteral calculus that could represent interval passage.
[2017-06-01] MEDS: PANTOPRAZOLE 40 MG/10 ML VIAL IVP SCH (09:28)
--- NOTE | 2017-06-01 10:00 | P.PN ---
Subjective Progress Note Date: 06/01/[address] scan with radiology There is a stone in the distal left ureter SHe is afebrile WE discussed all the options I will proceed withat least a stent tomorrow and if easy remove the stone at the same time She understands the risks including sepsis Objective - Vital Signs Vital signs: Vital Signs Temp 99.0 F 06/01/17 07:00 Pulse 103 H 06/01/17 07:00 Resp 18 06/01/17 07:00 BP 180/95 06/01/17 07:00 Pulse Ox 94 L 06/01/17 07:00 Intake & Output 05/31/17 06/01/17 06/01/17 18:59 06:59 18:59 Intake Total 875 2100 Balance 875 2100 Weight 68.946 kg Intake: Intake, IV Titration 875 1500 Amount Lactated Ringers 1,000 ml 875 1500 @ 125 mls/hr IV .Q8H MIGUE Rx#:[id number] Oral 600 Other: Voiding Method Toilet Toilet # Voids 2 - Labs CBC & Chem 7: 06/01/17 07:15 06/01/17 07:15 Labs: Abnormal Lab Results - Last 24 Hours (Table) 06/01/17 06/01/17 Range/Units 07:15 07:15 Hgb 7.8 L (11.4-16.0) gm/dL Hct 27.4 L (34.0-46.0) % MCV 70.5 L (80.0-100.0) fL MCH 19.9 L (25.0-35.0) pg MCHC 28.3 L (31.0-37.0) g/dL RDW 18.6 H (11.5-15.5) % Plt Count 478 H (150-450) k/uL Potassium 3.1 L (3.5-5.1) mmol/L BUN 5 L (7-17) mg/dL Microbiology - Last 24 Hours (Table) 05/28/17 14:52 Blood Culture - Preliminary Blood No Growth after 72 hours
[2017-06-01] MEDS: POTASSIUM CHLORIDE ER 20 MEQ TAB.ER PO STA ×2 (12:18→12:44)
[2017-06-01] MEDS ORDERED: DIPHENOX-ATROP 2.5-0.025 MG 1 EACH TAB PO PRN (16:40)
--- NOTE | 2017-06-01 16:44 | P.PN ---
Progress Note - Text Progress Note Date: 06/01/17 Presenting complaint fever Interval history: This is a very pleasant 41-year-old patient of Dr. Fleming. Chronic stable medical conditions include hypertension, kidney stones, heavy menstrual period. Patient does get kidney stone pain off and on, and sometimes get cloudy urine that clears up up on its own. For about 5 days patient been having fever chills. Increased urinary frequency. Increasing low back pain, and in the kidney area. Decreased appetite. Some nausea. No vomiting. Tired rundown. Finally decided to come in. Patient's hemoglobin was found to be down in the ER. Patient does occasionally notice dark stool. There is no weight loss. Patient does complain of heavy menstrual period for quite some time. Did not seek medical attention for the same though she did mention this to her family doctor's mid- level provider Today-fevers and started to come down. Occasional loose stools. Minimal abdominal pain. Overall feeling better. Review of systems: Was done for constitutional, cardiovascular, GI, pulmonary. relevant finding as above Current medications are reviewed and include: IV ceftriaxone IV lactated Ringer's VITAL SIGNS: T-max 100.8 last night, 103, 18, 155/95, 98% room air GENERAL: , Sitting up comfortable. EYES: Pupils equal. Conjunctiva palel. HEENT: External appearance of nose and ears normal, oral cavity grossly normal. NECK: JVD not raised; masses not palpable. HEART: First and second heart sounds are normal; no edema. LUNGS: Respiratory rate normal; clear to auscultation. ABDOMEN: Soft, nontender, liver spleen not palpable, no masses palpable. PSYCH: Alert and oriented x3; mood and affect normal. Investigations: White count 9 hemoglobin 7.8 potassium 3.1 Computed tomography scan of the abdomen and pelvis-possible left ureter stones Assessment: -Possible right pyelonephritis in a patient with known kidney stones, now presenting with sepsis, POA, slow to respond with fever spikes that are continued, now computed tomography scan showing a possible left ureter stone. If patient continues with fevers in that case a double-J stent may have be placed. Though clinically, there is some mild improvement with some white count coming down -Significant microcytic anemia, and the patient is got acute on chronic menorrhagia, that could explain the same but at the same time, patient does report of dark stools and patient got fecal, blood positive. -Possible chronic GI bleed, needs to be further worked up -Essential hypertension -Chronic menorrhagia -Chronic nephrolithiasis -Acute renal failure, present on admission, prerenal with creatinine coming down from 1.1 down to 0.57 -Hypoalbuminemia, from an acute phase reactant -Acute antibiotic associated diarrhea, negative for C. diff -Large calcified gallstone-asymptomatic Plan: Patient to continue with IV ceftriaxone. An IV fluids. Dr. Rabago's planning for a possibly stone extraction and possible double J stent placement. Replace potassium. Add Lomotil
[2017-06-01] MEDS: cefTRIAXone IN SWFI 1,000 MG/10 ML SYRINGE IVP SCH (20:26)
[2017-06-01] MEDS: POTASSIUM CHLORIDE ER 20 MEQ TAB.ER PO SCH (20:26)
[2017-06-02 04:08] LABS: Anion Gap 11 mmol/L; Blood Urea Nitrogen 6 mg/dL (7-17); Calcium 8.9 mg/dL (8.4-10.2); Carbon Dioxide 29 mmol/L (22-30); Chloride 104 mmol/L (98-107); Glucose 89 mg/dL (74-99); Potassium 3.9 mmol/L (3.5-5.1); Sodium 144 mmol/L (137-145)
[2017-06-02] MEDS ORDERED: IV FLUID CONTINUATION 1,000 ML IV ONE (06:18)
[2017-06-02] MEDS: ONDANSETRON 4 MG/2 ML VIAL IVP PRN ×2 (06:52→07:00)
[2017-06-02] MEDS ORDERED: fentaNYL (PF) 50 MCG/ML 2 ML AMP ONE (07:00)
[2017-06-02] MEDS ORDERED: LIDOCAINE 1% INJ 10MG/ML (20 ML MDV) ONE (07:00)
[2017-06-02] MEDS ORDERED: MIDAZOLAM 2 MG/2 ML VIAL ONE (07:00)
[2017-06-02] MEDS ORDERED: IOHEXOL 350 MG/ML 50ML BOTTLE MISCELLANE ONE (07:00)
[2017-06-02] MEDS ORDERED: PROPOFOL 10 MG/ML 20 ML VIAL IV ONE (07:00)
[2017-06-02] MEDS ORDERED: ACETAMINOPHEN TAB 500 MG TAB PO PRN (07:29)
--- NOTE | 2017-06-02 07:35 | P.OP ---
Date of Procedure: 06/02/17 Preoperative Diagnosis: Left ureteral calculus with obstruction Postoperative Diagnosis: Same, passed Procedure(s) Performed: Cystoscopy, left retrograde pyelogram, left ureteroscopy Anesthesia: OZZIEA Surgeon: Avinash Swan Estimated Blood Loss (ml): 0 Pathology: none sent Condition: stable Disposition: PACU Indications for Procedure: The patient is a 41-year-old female in the hospital with anemia due to dysfunctional uterine bleeding as well as a fever felt to be due to urinary tract infection with sepsis. She had a computed tomography scan identifying a distal ureteral stone with hydroureteronephrosis. She hadn't passed the stone. We discussed options and decided to proceed with cystoscopy and ureteral stone manipulation have gross hematuria this morning with clots. Description of Procedure: The patient is brought to the operating suite. She is given a general anesthesia. She's placed lithotomy position with sterile prep and drape. Cystoscopy Foroblique lens and 22-Indonesian sheath identifies chronic cystitis cystica. The bladder is otherwise unremarkable. Both ureteral orifices are identified and are normal. Within a cone-tipped catheter a limited distal ureteral grade is performed and there is a filling defect at the level of the ureterovesical junction. I thus passed the semirigid ureteroscope up to this point and no stone was identified. I passed at although after the leg vessels and no stone was identified. I removed the ureteroscope. The bladder strain the patient's awake and returned recovery room good condition Seen on the computed tomography scan probably was passed during the gross hematuria this morning. The filling defect seen on retrograde probably was edema from the stone impaction previously. I will see her in follow-up in the office that she does have a history of stones, another stone in the kidney and has never seen a urologist prior to this admission.
[2017-06-02 07:45] VITALS: TEMP 97.6
[2017-06-02 07:50] VITALS: RESP 16
[2017-06-02 08:06] VITALS: BP 143/83; PULSE 81
--- NOTE | 2017-06-02 08:19 | FL ---
EXAMINATION TYPE: FL urography retrograde DATE OF EXAM: 06/02/2017 COMPARISON: NONE HISTORY: Retrograde urography TECHNIQUE: Fluoroscopy. FINDINGS: Fluoroscopic guidance was provided during procedure. A total of 53 seconds of fluoroscopic time was utilized during the procedure and was spot images was acquired. IMPRESSION: As Above.
[2017-06-02] MEDS ORDERED: CIPROFLOXACIN HCL 500 MG TAB PO SCH (09:00)
[2017-06-02] MEDS: LACTATED RINGERS 1,000 ML IV SCH (09:25)
[2017-06-02] MEDS: POTASSIUM CHLORIDE ER 20 MEQ TAB.ER PO SCH (09:26)
--- NOTE | 2017-06-06 00:24 | DS ---
DISCHARGE SUMMARY DATE OF ADMISSION: May 28, 2017. DATE OF DISCHARGE: June 02, 2017. FINAL DIAGNOSES: 1. Acute right pyelonephritis causing sepsis present on admission. 2. Left ureter stone. 3. Significant symptomatic microcytic anemia with contribution from chronic menorrhagia. 4. Possible slow chronic gastrointestinal bleed for outpatient workup. 5. Essential hypertension. 6. Chronic menorrhagia. 7. Chronic nephrolithiasis. 8. Acute renal failure present on admission, prerenal with creatinine did come down from 1.1 down to 0.57. 9. Hypoalbuminemia as an acute phase reactant. 10.Acute antibiotic associated diarrhea, negative for C. diff. 11.Large calcified gallstone, asymptomatic. HOSPITAL COURSE: This patient presented with sepsis picture. Abdominal pain. Initially felt to have right-sided pyelonephritis. The patient also found to have a stone on the left ureter. Dr. Swan did a cystoscopy, IV retrograde pyelogram, ureteroscopy, by that time the stone had actually passed. On examination lungs are clear. Abdomen is soft, nontender. The patient's creatinine was 1.1 on presentation, did drop down to 0.58. The patient did receive a unit of blood. Hemoglobin was 7.8 by the time of discharge. The patient also seen by Dr. Ramirez from Gastroenterology who will follow up the patient as an outpatient. CONSULTATION: Dr. Ramirez from Gastroenterology, Dr. Swan from Urology. DISCHARGE MEDICATIONS: 1. Ciprofloxacin 500 mg q.12, 10 tablets. 2. Lomotil 1 tab q.6h p.r.n. The patient was told to follow up with [employer] as an outpatient. Follow Dr. Ramirez on June 21, 2017, Dr. Elliot Fleming 06/09/17. Dr. Amarilys Mckeon in one week. Dr. Alo Swan in 1 week. Diet soft bland. The patient may return to work next Tuesday. Care was discussed with the patient and her and [id number]. All questions were answered. Copy to Dr. Fleming. MANA / JUAN CARLOSN: [id number] /
== END 2017-06-02 15:08 | disposition home or self-care (01) | DRG 872 ==
LOC: EC 14:26 → 5MS5E 16:26
PROVIDERS: ADMIT Hospitalist; ATTEND Hospitalist
PROC: BT1F1ZZ Fluoroscopy of Left Kidney, Ureter and Bladder using Low Osmolar Contrast (ICD-10-PCS; principal; 2017-06-02 07:00)
DX: A41.9 Sepsis, unspecified organism (principal); N17.9 Acute kidney failure, unspecified; K52.1 Toxic gastroenteritis and colitis; N20.1 Calculus of ureter; N10 Acute pyelonephritis; D50.0 Iron deficiency anemia secondary to blood loss (chronic); I10 Essential (primary) hypertension; N92.0 Excessive and frequent menstruation with regular cycle; E88.09 Other disorders of plasma-protein metabolism, not elsewhere classified; T36.95XA Adverse effect of unspecified systemic antibiotic, initial encounter; K80.20 Calculus of gallbladder without cholecystitis without obstruction; E86.0 Dehydration; R63.0 Anorexia; N93.8 Other specified abnormal uterine and vaginal bleeding; Z83.3 Family history of diabetes mellitus; Z87.442 Personal history of urinary calculi; Z86.32 Personal history of gestational diabetes
CPT/HCPCS: 36415; 71046; 74018; 74177; 74420; 80048; 80053; 81001; 81025; 82272; 83605; 84132; 85025; 86850; 86900; 86901; 86920; 87040; 87086; 87324; 87502; 93005; 96361; 96374; 96375; 99285